=== PATIENT | female | born 1985 | race Caucasian/White ===

== ENCOUNTER → 2017-12-04 18:38 | Outpatient (CLI) | payer BC, SELFPAY ==
[2017-12-04 21:18] LABS: Chlamydia Trachomatis by PCR Negative (Negative); Neisserai gonorrhoeae by PCR Negative (Negative); Probe Check PASS; Sample Adequacy Control PASS; Specimen Processing Control PASS
[2017-12-10 08:29] LABS: HPV Reflexed? NOT INDICATED
== END ==
PROVIDERS: Visit Provider Obstetrics & Gynecology
DX: Z12.4 Encounter for screening for malignant neoplasm of cervix (principal); Z11.3 Encounter for screening for infections with a predominantly sexual mode of transmission
CPT/HCPCS: 87491; 87591; 88175; G0145

== ENCOUNTER → 2017-12-25 14:33 | Outpatient (CLI) | payer BC, SELFPAY ==
[2017-12-25 15:59] LABS: Absolute Lymphocyte Count 1.48 X10^3/ul (0.83-4.51); Absolute Neutrophil Count 4.7 X10^3/uL (2.0-7.7); Basophil# 0.01 X10^3/uL; Basophil% 0.1 % (0-1); Eosinophils% 1.5 % (0-5); Hematocrit 39.1 % (37-47); Hemoglobin 13.3 g/dl (12.0-15.0); Lymphocyte # 1.48 X10^3/ul (4.0); Lymphocyte % 21.8 % (19-41); Mean Corpuscular Volume 94.2 fL (81-99); Mean Platelet Vol. 11.7 fl (6.2-12.0); Monocyte# 0.46 X10^3/uL; Monocyte% 6.8 % (0-10); Neutrophil # 4.73 X10^3/uL (2.7-7.7); Neutrophil % 69.5 % (47-70); Platelet Count 242 K/mm3 (150-450); RBC Distribution Width CV 12.6 % (11.6-14.6); RBC Distribution Width SD 42.1 fl (35.1-43.9); Red Blood Count 4.15 M/mm3 (4.2-5.4); White Blood Count 6.8 K/mm3 (4.4-11.0)
[2017-12-25 16:00] LABS: POSITIVE COUNT NO; POSITIVE DIFFERENTIAL NO; POSITIVE MORPHOLOGY NO
[2017-12-25 16:56] LABS: HIV - WCH Non-Reactive (Nonreactive); Rubella IgG 221.3 IU/mL
[2017-12-25 17:39] LABS: Color, Urine Yellow (Yellow); Glucose, Dipstick Normal (Normal); Ketone-Dipstick Negative (Negative); Leukocyte Esterase-Dipstick 25 /ul (Negative); Nitrite-Dipstick Negative (Negative); Occult Blood-Urine Negative /ul (Negative); Protein-Dipstick Negative (Negative); Specific Gravity, Urine 1.015 (1.002-1.030); Urine Bilirubin Dipstick Negative (Negative); Urine Clarity Clear (Clear); Urine Urobilinogen Normal (Normal)
[2017-12-25 17:47] LABS: COTININE Drug Screen Negative (<200 ng/mL)
[2017-12-25 17:54] LABS: Amphetamine Urine VISTA NEGATIVE (<1000 ng/mL); Barbiturate Urine VISTA NEGATIVE (< 200 ng/mL); Benzodiazepine Urine VISTA NEGATIVE (< 200 ng/mL); Cocaine Urine VISTA NEGATIVE (< 300 ng/mL); Ecstacy Urine VISTA NEGATIVE (< 500 ng/mL); Methadone Urine VISTA NEGATIVE (< 300 ng/mL); PCP Urine VISTA NEGATIVE (< 25 ng/mL); THC Urine VISTA NEGATIVE (< 50 ng/mL); Vista UDS pH Range 5
[2017-12-28 11:36] LABS: HEPATITIS B SURFACE AG Negative (Negative); Hep C Antibodies <0.1 s/co ratio (0.0-0.9)
[2018-01-01 02:59] LABS: Prenatal RPR NONREACTIVE (NONREACTIVE)
== END ==
PROVIDERS: Visit Provider Obstetrics & Gynecology
DX: Z34.81 Encounter for supervision of other normal pregnancy, first trimester (principal)
CPT/HCPCS: 36415; 80307; 81002; 84443; 85025; 86703; 86762; 86803; 87340

== ENCOUNTER → 2018-04-09 15:25 | Outpatient (CLI) | payer BC, SELFPAY ==
[2016-12-18 13:33] VITALS: BMI 25.9
[2018-04-09 16:26] LABS: Hematocrit 39.3 % (37-47); Hemoglobin 12.9 g/dl (12.0-15.0); Mean Corp Hgb Conc 32.8 g/gl (32-36); Mean Corpuscular Hgb 31.9 pg (27.0-32.0); Mean Corpuscular Volume 97.3 fL (81-99); Platelet Count 208 K/mm3 (150-450); RBC Distribution Width SD 45.6 fl (35.1-43.9); Red Blood Count 4.04 M/mm3 (4.2-5.4)
[2018-04-09 16:33] LABS: Scan Indicated on CBC? Y/N NO
[2018-04-09 16:42] LABS: Glucose Challenge Gest 1H 50g 160 mg/dL (70-140)
== END ==
PROVIDERS: Visit Provider Obstetrics & Gynecology
DX: Z34.83 Encounter for supervision of other normal pregnancy, third trimester (principal)
CPT/HCPCS: 36415; 82950; 85027

== ENCOUNTER → 2018-04-14 06:44 | Outpatient (CLI) | payer BC, SELFPAY ==
[2018-04-14 07:41] LABS: Glucose GTT-Gestation. Fasting 74 mg/dL (<105)
[2018-04-14 08:43] LABS: Glucose GTT-Gestational 1 Hr 122 mg/dL (<190)
[2018-04-14 10:06] LABS: Glucose GTT-Gestational 2 Hr 88 mg/dL (<165)
[2018-04-14 10:23] LABS: Glucose GTT-Gestational 3 Hr 50 L (<145)
--- OUTSIDE RECORDS SUMMARY | 2018-06-18 22:15 | XMS RPT_ITS ---
:1985 Author Organization OHIP Care Team Providers Name Role Phone Torito Atwood Attending Unavailable Seals, Torito Attending Unavailable SealsTorito Referring Unavailable Primay Care Physicia, No Primary Care Unavailable SealsTorito Attending Unavailable Seals, Torito Attending Unavailable PROBLEMS PROBLEMS DATE TYPE CONDITION / CODE ATTENDING STATUS SOURCE 04/13/2018 Unknown Z34.83 - Torito Atwood Active [place] Encounter for Community supervision of Hospital other normal Repository , third trimester / Z34.83(ICD-10) PROCEDURES PROCEDURES No Procedure Records FoundRESULTS RESULTS GESTATIONAL GTT 3HR Collected: 04/14/2018 Status: F Source: [place] 100G 7:00 AM [facility] REPOSITORY Order Comment: Is Patient Fasting? Y TYPE CODE TESTS RESULT OUT OF RANGE REFERENCE UNITS LAB L501.0650 <105 mg/dL Normal GLU 74 GTT-FASTING Result Comment: GLUCOSE TOLERANCE TEST FOR Reference Interval GESTATIONAL DIABETES Fasting <105 mg/dL 1 hour <190 mg/dl 2 hour <165 mg/dl 3 hour <145 mg/dl LAB L501.0660 <190 mg/dL Normal GLU GTT- 1HR 122 LAB L501.0670 <165 mg/dL Normal GLU GTT- 2HR 88 LAB L501.0680 <145 L Normal GLU GTT- 3HR 50 Performed By: #### L500.4710 #### [facility] [address] [place], [address] CBC-COMPLETE BLOOD CNT Collected: 04/09/2018 Status: F Source: [place] NO DIFF 3:34 PM [facility] REPOSITORY TYPE CODE TESTS RESULT OUT OF RANGE REFERENCE UNITS LAB L100.1000 4.4-11.0 K/mm3 Normal WBC 7.0 LAB L100.1200 4.2-5.4 M/mm3 Low RBC 4.04 LAB L100.1300 12.0-15.0 g/dl Normal HGB 12.9 LAB L100.1400 37-47 % Normal HCT 39.3 LAB L100.1500 81-99 fL Normal MCV 97.3 LAB L100.1600 27.0-32.0 pg Normal MCH 31.9 LAB L100.1700 32-36 g/gl Normal MCHC 32.8 LAB L100.1810 11.6-14.6 % Normal RDW CV 13.0 LAB L100.1820 35.1-43.9 fl High RDW SD 45.6 LAB L100.1900 150-450 K/mm3 Normal PLT 208 LAB L100.2000 6.2-12.0 fl Normal MPV 12.0 Performed By: #### L100.0500 #### [facility] [address] [place], [address] GLUCOSE CHALLENGE GEST Collected: 04/09/2018 Status: F Source: [place] 1H 50G 3:34 PM [facility] REPOSITORY TYPE CODE TESTS RESULT OUT OF RANGE REFERENCE UNITS LAB L501.0250 70-140 mg/dL High GLU GEST 160 50g 1H Performed By: #### L501.0250 #### [facility] [address] [place], [place], [address] URINE DRUG SCREEN Collected: 12/25/2017 Status: F Source: [place] (ABRAMTA) 2:37 PM [facility] REPOSITORY Order Comment: List of Drugs Taken or Suspected? UNK TYPE CODE TESTS RESULT OUT OF RANGE REFERENCE UNITS LAB L505.0075 TO BE Normal CONFIRMED Result Comment: CONFIRMATORY TESTING FOR ALL POSITIVE URINE DRUG SCREEN RESULTS WILL ONLY BE SENT OUT UPON PHYSICIAN ORDER. VISTA Urine Drug Screen methods provide only preliminary analytical test results. A more specific alternate chemical method must be used in order to obtain a confirmed analytical result. Gas chromatography/mass spectrometery (GC/MS) is the preferred confirmatory method. Clinical consideration and professional judgement should be applied to any drug of abuse test result, particularly when preliminary positive results are used. URINE TCA TESTING MUST BE ORDERED SEPARATELY. USE TEST MNEMONIC: [facility] LAB L505.5005 VISTA UDS PH 5 Normal LAB L505.5015 <1000 ng/mL AMPHETAMINES Normal NEGATIVE LAB L505.5025 < 200 ng/mL BARBITIURATES Normal NEGATIVE LAB L505.5035 < 200 ng/mL BENZODIAZIPINE Normal NEGATIVE LAB L505.5045 < 300 ng/mL COCAINE Normal NEGATIVE LAB L505.5055 < 500 ng/mL ECSTACY Normal NEGATIVE LAB L505.5065 < 300 ng/mL METHADONE Normal NEGATIVE LAB L505.5075 < 300 ng/mL OPIATES Normal NEGATIVE LAB L505.5085 < 25 ng/mL PCP Normal NEGATIVE LAB L505.5095 < 50 ng/mL THC Normal NEGATIVE Performed By: #### L505.5000, L505.6240 #### [facility] [address] [place], [place], [address] NICOTINE URINE DRUG Collected: 12/25/2017 Status: F Source: [place] SCREEN 2:37 PM [facility] REPOSITORY Order Comment: List of Drugs Taken or Suspected? UNK TYPE CODE TESTS RESULT OUT OF RANGE REFERENCE UNITS LAB L505.6250 TO BE Normal CONFIRMED Result Comment: CONFIRMATORY TESTING FOR ALL POSITIVE URINE DRUG SCREEN RESULTS WILL ONLY BE SENT OUT UPON PHYSICIAN ORDER. The results of Urine Drug Screen methods provide only preliminary analytical test results. A more specific alternate chemical method must be used in order to obtain a confirmed analytical result. Gas chromatography/mass spectrometery (GC/MS) is the preferred confirmatory method. Clinical consideration and professional judgement should be applied to any drug of abuse test result, particularly when preliminary positive results are used. LAB L505.6270 <200 ng/mL Normal COT DRG Negative SCREEN Result Comment: Cotinine is the first-stage metabolite of Nicotine. Performed By: #### L505.5000, L505.6240 #### [facility] [place], [address] CBC W/DIFF, AUTOMATED Collected: 12/25/2017 Status: F Source: [place] 2:37 PM [facility] REPOSITORY TYPE CODE TESTS RESULT OUT OF RANGE REFERENCE UNITS LAB L100.1000 4.4-11.0 K/mm3 Normal WBC 6.8 LAB L100.1200 4.2-5.4 M/mm3 Low RBC 4.15 LAB L100.1300 12.0-15.0 g/dl Normal HGB 13.3 LAB L100.1400 37-47 % Normal HCT 39.1 LAB L100.1500 81-99 fL Normal MCV 94.2 LAB L100.1600 27.0-32.0 pg Normal MCH 32.0 LAB L100.1700 32-36 g/gl Normal MCHC 34.0 LAB L100.1810 11.6-14.6 % Normal RDW CV 12.6 LAB L100.1820 35.1-43.9 fl Normal RDW SD 42.1 LAB L100.1900 150-450 K/mm3 Normal PLT 242 LAB L100.2000 6.2-12.0 fl Normal MPV 11.7 LAB L100.2100 47-70 % Normal NEUT% 69.5 LAB L100.2200 19-41 % Normal LY% 21.8 LAB L100.2300 0-10 % Normal MONO% 6.8 LAB L100.2400 0-5 % Normal EO% 1.5 LAB L100.2500 0-1 % Normal BASO% 0.1 LAB L100.2550 0.0-0.9 % Normal IM GRAN % 0.300 Result Comment: IG% - Immature Granulocytes (promyelocytes, myelocytes and metamyelocytes) > 1% indicates that a LEFT SHIFT is Present. LAB L100.2620 2.0-7.7 X10 3/uL Normal Absolute Neut 4.7 LAB L100.2720 0.83-4.51 X10 3/ul Normal Absolute Lymph 1.48 Performed By: #### L100.0100 #### [facility] [address] [place], [place], [id number] THYROID STIM HORMONE Collected: 12/25/2017 Status: F Source: [place] (TSH) 2:37 PM [facility] REPOSITORY TYPE CODE TESTS RESULT OUT OF RANGE REFERENCE UNITS LAB L501.9520 0.358-3.74 uIU/mL Normal TSH 0.90 Performed By: #### L501.9520 #### [facility] [address] [place], [address] T AND S-NO Collected: 12/25/2017 Status: F Source: [place] CHARGE W/PNP 2:37 PM [facility] REPOSITORY Order Comment: Reason for Type AND Screen/Red Cells: Surgery? N TYPE CODE TESTS RESULT OUT OF RANGE REFERENCE UNITS LAB B10.0800 A Normal BLOOD POSITIVE TYPE GEL LAB B100.4050 Normal Ab SCREEN NEGATIVE GEL Performed By: #### B100.7550 #### [facility] [address] [place], [place], [address] RUBELLA IGG Collected: 12/25/2017 Status: F Source: [place] 2:37 PM [facility] REPOSITORY TYPE CODE TESTS RESULT OUT OF RANGE REFERENCE UNITS LAB L509.4000 IU/mL Normal Rubella IgG 221.3 Result Comment: Antibody results Interpretation of Immune Status < 5 IU/ml Presumed Non-immune 5 - < 10 IU/ml Equivocal > or = 10 IU/ml Presumed Immune Performed By: #### L509.4000, L3890.6005 #### [facility] [address] [place], [address] HIV - WCH Collected: 12/25/2017 Status: F Source: [place] 2:37 PM [facility] REPOSITORY TYPE CODE TESTS RESULT OUT OF RANGE REFERENCE UNITS LAB L3890.6005 Nonreactive Normal HIV - WCH Non-Reactive Performed By: #### L509.4000, L3890.6005 #### [facility] [address] [place], [place], [address] URINALYSIS, ROUTINE Collected: 12/25/2017 Status: F Source: [place] (DIPSTICK) 2:37 PM [facility] REPOSITORY Order Comment: How was Urine Obtained? Urine, Random TYPE CODE TESTS RESULT OUT OF RANGE REFERENCE UNITS LAB L400.3000 Yellow COLOR Normal Yellow LAB L400.3050 Clear Normal CLARITY Clear LAB L400.3200 Normal mg/dl Normal GLUCOSE, UR Normal LAB L400.3300 Negative mg/dL Normal BILIRUBIN URINE Negative LAB L400.3400 Negative mg/dl Normal KETONE UR Negative LAB L400.3465 1.002-1.030 Normal SP.GR. DIPSTX 1.015 LAB L400.3550 5.0 - 8.0 pH UR Normal 6.0 LAB L400.3600 Negative mg/dl PROT Normal DIPSTX Negative LAB L400.3700 Normal mg/dl Normal UROBILI Normal LAB L400.3750 Negative Normal NITRITE UR Negative LAB L400.3780 Negative /ul Normal OCCULT BLOOD-UR Negative LAB L400.3800 Negative /ul High LEUK 25 ESTERASE Performed By: #### L400.2010 #### [facility] [address] [place], [place], [address] HEPATITIS B SURFACE Collected: 12/25/2017 Status: F Source: [place] AG 2:37 PM [facility] REPOSITORY TYPE CODE TESTS RESULT OUT OF RANGE REFERENCE UNITS LAB L3100.0400 Negative Normal HB Negative SURF AG Result Comment: Performed at: [facility] [id number] Clinical Nursing Professor: Hakeem Richard PhD, Phone: [phone] Performed By: #### L3100.0390, L3100.0625 #### [facility] (refer to report for specific site) refer to report for address and phone number HEPATITIS C ANTIBODIES Collected: 12/25/2017 Status: F Source: [place] 2:37 PM [facility] REPOSITORY TYPE CODE TESTS RESULT OUT OF RANGE REFERENCE UNITS LAB L3100.0650 0.0-0.9 s/co ratio Normal HEP C AB <0.1 Result Comment: Negative: < 0.8 Indeterminate: 0.8 - 0.9 Positive: > 0.9 The CDC recommends that a positive HCV antibody result be followed up with a HCV Nucleic Acid Amplification test (755813). Performed By: #### L3100.0390, L3100.0625 #### [facility] (refer to report for specific site) refer to report for address and phone number RPR Collected: 12/25/2017 Status: F Source: [place] 2:37 PM [facility] REPOSITORY TYPE CODE TESTS RESULT OUT OF REFERENCE UNITS RANGE LAB L700.5100 NONREACTIVE Normal RPR NONREACTIVE Performed By: #### L700.5100 #### [facility] [address] [place], [address] CT/NG WCH BY PCR Collected: 12/04/2017 Status: F Source: [place] 6:39 PM [facility] REPOSITORY TYPE CODE TESTS RESULT OUT OF RANGE REFERENCE UNITS LAB L8200.2100 Negative Normal Chlam Negative Trac PCR LAB L8200.2200 Negative Normal NG by Negative PCR Performed By: #### L8200.2000 #### [facility] [address] [place], [address] PAP I-G W/RFX HRHPV Collected: 12/04/2017 Status: F Source: [place] 6:39 PM [facility] REPOSITORY Order Comment: CYTOLOGY INFORMATION: - CLINICAL INFORMATION: HYSTERECTOMY - DATE LMP/MENOPAUSE: LMP - COLLECTION VIAL: Thin Prep Vial - TEACHER PRIVATE SOURCE: CERVICAL/ENDOCERVICAL - COLLECTION TECHNIQUE: BRUSH/SPATULA Specimen Comment: [id number] Specimen Comment: Source.............Cervix;Endocervix Specimen Comment: LMP / Prev Treat...Hyst Specimen Comment: No. of containers..01 ThinPrep Vial TYPE CODE TESTS RESULT OUT OF RANGE REFERENCE UNITS LAB L7400.0800 . Normal DIAGN Comment Result Comment: NEGATIVE FOR INTRAEPITHELIAL LESION AND MALIGNANCY. LAB L7400.0900 . Normal ADEQ Comment Result Comment: Satisfactory for evaluation. No endocervical cells are present. This is consistent with a history of hysterectomy. LAB L7400.1400 . Normal PERFORM Comment Result Comment: Karri Rivas Embalmer Apprentice (ASCP) LAB L7400.2575 . Normal TEST METHOD Comment Result Comment: This liquid based ThinPrep(R) pap test was screened with the use of an image guided system. LAB L7400.2600 . Normal . COMM LAB L7400.2700 . Normal PAPSMR Comment Result Comment: The Pap smear is a screening test designed to aid in the detection of premalignant and malignant conditions of the uterine cervix. It is not a diagnostic procedure and should not be used as the sole means of detecting cervical cancer. Both false-positive and false-negative reports do occur. LAB L7400.2800 . Normal HPV RFLX Comment Result Comment: The HPV DNA reflex criteria were not met with this specimen result therefore, no HPV testing was performed. Performed at: [facility] [id number] Clinical Nursing Professor: Jud Sanchez MD, Phone: [phone] Performed By: #### L7400.0350 #### [facility] (refer to report for specific site) refer to report for address and phone number ALLERGIES ALLERGIES DATE TYPE / CODE NAME / CODE REACTION SEVERITY SOURCE 08/30/2014 Drug No Known Unknown [facility] Allergy/4160 Allergies/F00 Hospital [address]154(SNOMED [id number](RXNOR Repository CT) M) ENCOUNTERS ENCOUNTERS ADMIT/DISCHARGE ACCOUNT ADMITTING ENCOUNTER LOCATION SOURCE NUMBER CLASS 04/14/[id number] ing:LAB Repository 04/09/[id number] ing:WOBLAB Repository 12/25/[id number] ing:WOBLAB Repository 12/04/[id number] ing:LABSPEC Repository PAYERS PAYERS ENCOUNTER GUARANTOR PAYER SUBSCRIBER SOURCE 04/14/2018 REYNALDO Mcneal Primary REYNALDO [id number] [facility] y Number: [id number], [place] [id number] Repository [address]Moh: ([phone]) Date:2517-05-26PD [phone] () [place] CLEMENTS [id number]: 04/14/2018 Secondary NOT GIVENUNK [place] Insurance:SELF PAY [facility] Number: Effective Repository Date:2018-04-12 04/09/2018 REYNALDO Primary SUKH [place] [id number] Insurance:ANTHE[employer]olic HARTZLERDOB: Community [place] y Number: [id number], [place] [id number] Repository [address]Qik: [phone]) Date:5824-87-37LS [phone] () [id number] AVILA [address]DH: 04/09/2018 Secondary NOT GIVENUNK [place] Insurance:SELF PAY [facility] Number: Effective Repository Date:2018-04-09 12/25/2017 REYNALDO Primary REYNALDO [place] [id number] Insurance:ANTHEMPolic HARTZLERDOB: Community [place] y Number: [id number], [place] [id number] Repository [address]Qwa: [phone]) Date:1095-11-05IP [phone] () [id number] AVILA [address]HR: 12/25/2017 Secondary NOT GIVENUNK [place] Insurance:SELF PAY [facility] Number: Effective Repository Date:2017-12-25 12/04/2017 Sukh Primary SUKH [place] [id number] Insurance:ANTHEMPolic HARTZLERDOB: Community [place] y Number: [id number], [place] [id number] Repository [address]Xok: [phone]) Date:2630-99-52PU [phone] () 191274VSUYJHYARCHANA AVILA [address]QD: 12/04/2017 Secondary NOT GIVENUNK [place] Insurance:SELF PAY [facility] Number: Effective Repository Date:2017-12-04
== END ==
PROVIDERS: Referring Provider Obstetrics & Gynecology; Visit Provider Obstetrics & Gynecology
DX: O24.912 Unspecified diabetes mellitus in pregnancy, second trimester (principal); Z3A.00 Weeks of gestation of pregnancy not specified
CPT/HCPCS: 36415; 82951; 82952

== ENCOUNTER → 2018-06-04 14:49 | Outpatient (CLI) | payer BC, SELFPAY ==
[2016-12-18 13:33] VITALS: BMI 25.9
== END ==
PROVIDERS: Visit Provider Obstetrics & Gynecology
DX: Z36.85 Encounter for antenatal screening for Streptococcus B (principal)
CPT/HCPCS: 87081

== ENCOUNTER 2018-07-02 02:00 | Inpatient (IN) | payer BC, SELFPAY ==
[2016-12-18 13:33] VITALS: BMI 25.9
[2018-07-01 21:49] VITALS: BMI 26.4
[2018-07-02] MEDS: Lactated Ringers 1,000 ML 50 ML IV ×2 (02:20→03:27)
[2018-07-02 02:45] LABS: Absolute Lymphocyte Count 1.91 X10^3/ul (0.83-4.51); Absolute Neutrophil Count 5.7 X10^3/uL (2.0-7.7); Basophil# 0.02 X10^3/uL; Basophil% 0.2 % (0-1); Eosinophil# 0.13 X10^3/uL; Eosinophils% 1.5 % (0-5); Hematocrit 39.3 % (37-47); Hemoglobin 13.3 g/dl (12.0-15.0); Lymphocyte # 1.91 X10^3/ul (4.0); Lymphocyte % 22.6 % (19-41); Mean Corp Hgb Conc 33.8 g/gl (32-36); Mean Corpuscular Hgb 32.7 pg (27.0-32.0); Mean Corpuscular Volume 96.6 fL (81-99); Mean Platelet Vol. 11.6 fl (6.2-12.0); Monocyte# 0.62 X10^3/uL; Monocyte% 7.3 % (0-10); Neutrophil % 67.6 % (47-70); Platelet Count 185 K/mm3 (150-450); RBC Distribution Width CV 13.3 % (11.6-14.6); RBC Distribution Width SD 46.5 fl (35.1-43.9); Red Blood Count 4.07 M/mm3 (4.2-5.4); White Blood Count 8.5 K/mm3 (4.4-11.0)
[2018-07-02 02:47] LABS: POSITIVE COUNT NO; POSITIVE DIFFERENTIAL NO; POSITIVE MORPHOLOGY NO
[2018-07-02] MEDS: fentaNYL-bupivacaine (epidural) 100 ML BAG EPIDURAL (03:52)
[2018-07-02] MEDS: Oxytocin 30 units/NS 500 ml 30 UNITS/500 ML IV.SOLN 334 UNITS IV (04:14)
--- NOTE | 2018-07-02 04:25 | PCM.OB.VAG ---
Vaginal Delivery Maternal Presentation: Active Labor 439w6d ega admitted in early active labor Amniotic Membrane Rupture Type: Spontaneous Rupture of Membrane time: 254 Amniotic Fluid Description: Clear Final VIJAY: 07/02/18 Final VIJAY Source: US <20 weeks Gestational age: 40 Weeks and 0 Days Date of Procedure: 07/02/18 Pre-Operative Diagnosis: Labor Post-Operative Diagnosis: saME Surgery/ Procedure Performed: Spontaneous Vaginal Delivery Anesthesiologist: Te Potter Type of Anesthesia: Epidural Description of Procedure: Admitted at 5 cm dilated. Progressed over 2 hours to fully dilated then pushed for a short time to deliver a live female . The placenta delivered spontaneously intact with a centrally located 3VC. The uterus contracted well. Inspection revealed an intact cervix, vagina, and perineum. Presentation: Vertex Placental Delivery Description: Spontaneous Placenta Disposition: [facility] Percentage of Placenta Abruption: 0 Cord Vessel Description: 3 Vessels Nuchal Cord Compression: Without compression Cord Entanglement: None Estimated Blood Loss: 200cc A gender: Female (1 minute): 8 (5 minute): 9 Episiotomy Description: None Laceration: None Medications given after delivery: IV Pitocin Complications: None
--- NOTE | 2018-07-02 04:30 | DCINST_ITS ---
Discharge Diet: No Restrictions Call your doctor if your incision/area has: Sudden Increased Bleeding, Foul Smelling Discharge Call your doctor if you observe: Fever of 101 or Higher, Inability to urinate, Inability to have a bowel movement, Using more than one pad per hour, Shortness of breath, Chest pain, Calf discomfort, Uncontrolled pain Cleanse incision/area with: Soap & Water Additional Instructions: If you experience any of the following, contact your healthcare provider. * Bleeding that soaks a pad every hour for 2 hours * Fever 100.4 or higher * Unrelieved incision or abdominal pain * Swelling, redness, discharge or bleeding from your incision or episiotomy site * Your incision begins to separate * Problems urinating (including inability to urinate or burning while urinating). * Visual changes * Severe headache * Flu-like symptoms * Pain or redness in one of both of your breasts * Pain, warmth, tenderness or swelling in your legs, especially the calf area * Frequent nausea and vomiting * Symptoms of depression or anxiety If you experience any of the following, call 911 or go to the nearest Emergency Room. * Chest pain * Problems breathing * Seizure activity * Partial or complete paralysis of a body part, slurred speech, weakness or drooping of the face, or a sudden inability to walk or hold your balance Allergies/Adverse Reactions: Allergies No Known Allergies Allergy (Verified 07/01/18 21:51) Medications to take at Discharge Vits [Prenatabs FA ] 1 tablet PO DAILY 08/30/14 Ibuprofen [Motrin] 600 mg PO Q6H PRN PRN #30 tab 07/02/18 The following prescriptions were given: Ibuprofen [Motrin] 600 mg PO Q6H PRN PRN #30 tab PRN Reason: pain or cramping Please Follow Up With: Torito Atwood MD When: 6 weeks Primary Care Physician: Care Physician,No Primary [Primary Care Provider] - Test Results: Test results from this visit will be discussed in further detail at your follow- up appointment, if applicable. Proposed Discharge Date: 07/03/18
[2018-07-02] MEDS: Oxytocin 30 units/NS 500 ml 30 UNITS/500 ML IV.SOLN 167 UNITS IV (04:45)
[2018-07-02] MEDS: 0.9% Saline Lock 10 ML Syringe IV (05:55)
[2018-07-02 06:25] VITALS: BP 102/67; PULSE 76; RESP 18; TEMP 36.1
[2018-07-02] MEDS: Ibuprofen 600 MG Tablet PO ×3 (07:00→21:36)
[2018-07-02 09:10] VITALS: BP 111/62; PULSE 76; RESP 12; TEMP 36.6
[2018-07-02] MEDS: Acetaminophen 500 MG Tablet 1000 MG PO ×2 (10:40→18:58)
[2018-07-02] MEDS: Prenatal Vits Tablet 1 TABLET PO (11:01)
[2018-07-02 12:00] VITALS: BP 116/76; PULSE 73; RESP 16; TEMP 36.6
[2018-07-02 17:00] VITALS: BP 116/62; PULSE 70; TEMP 36.6
[2018-07-02 19:51] VITALS: BP 116/64; PULSE 69; RESP 16; TEMP 36.9
[2018-07-02 23:59] VITALS: BP 117/78; PULSE 69; RESP 16; TEMP 36.5
[2018-07-03] MEDS: Acetaminophen 500 MG Tablet 1000 MG PO ×2 (03:01→14:32)
[2018-07-03 03:02] VITALS: PULSE 72; RESP 16; TEMP 37.1
[2018-07-03] MEDS: Ibuprofen 600 MG Tablet PO (06:49)
[2018-07-03] MEDS: Senna/Docusate Sodium 1 Tablet PO (06:50)
[2018-07-03 06:51] VITALS: BP 113/66; PULSE 72; RESP 15
[2018-07-03 07:09] LABS: Hematocrit 33.8 % (37-47); Hemoglobin 11.2 g/dl (12.0-15.0); Mean Corp Hgb Conc 33.1 g/gl (32-36); Mean Corpuscular Hgb 32.3 pg (27.0-32.0); Mean Corpuscular Volume 97.4 fL (81-99); Mean Platelet Vol. 11.4 fl (6.2-12.0); Platelet Count 157 K/mm3 (150-450); RBC Distribution Width CV 13.6 % (11.6-14.6); RBC Distribution Width SD 47.5 fl (35.1-43.9); Red Blood Count 3.47 M/mm3 (4.2-5.4); White Blood Count 7.8 K/mm3 (4.4-11.0)
[2018-07-03 07:21] LABS: Scan Indicated on CBC? Y/N NO
[2018-07-03 07:50] VITALS: BP 101/69; PULSE 72; RESP 14; TEMP 36.7
--- NOTE | 2018-07-03 10:46 | PCM.PN.OB ---
Subjective: Patient without complaints. Minimal vaginal bleeding. Breast-feeding going well. Wants to go home today. - Physical Exam Vital Signs Temp Pulse Resp BP 98.1 F 72 14 101/69 07/03/18 07:50 07/03/18 07:50 07/03/18 07:50 07/03/18 07:50 Oxygen Delivery Method Room Air Weight: 159 lb 2.78 oz Body Mass Index (BMI) 26.4 Intake and Output for Last 24 Hours 07/01/18 07/02/18 07/03/18 23:59 23:59 23:59 Intake Total 1459 / 1459 Output Total 600 / 600 Balance 859 / 859 Laboratory Tests Past 24 Hrs 07/03/18 06:50 WBC 7.8 RBC 3.47 L Hgb 11.2 L Hct 33.8 L MCV 97.4 MCH 32.3 H MCHC 33.1 RDW 13.6 RDW Differential 47.5 H Plt Count 157 MPV 11.4 Medical Necessity - Tobacco Use Smoking Status: Never smoker Assessment/Plan Doing well day #1 status post spontaneous vaginal delivery. Will release to home with routine instructions.
[2018-07-03 14:25] VITALS: BP 111/68; PULSE 70; RESP 16; TEMP 36.8; O2SAT 98
[2018-07-03] MEDS: Prenatal Vits Tablet 1 TABLET PO (14:33)
--- NOTE | 2018-07-07 16:15 | NURSING ---
follow up phone call no answer , left voicemail
--- NOTE | 2018-07-08 07:47 | HP.PCM_ITS ---
Problem List (1) Active labor at term Status: Acute History of Present Illness Date of Admission: 07/02/18 Chief Complaint: Labor The patient is a 32 year old F [admitted at 39w6d ega in early active labor. No signs of SROM. 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 Objective: Afeb VSS. FHR tracing Cat 1 - Physical Exam General: Alert, Oriented x3, Cooperative, No apparent distress Lungs: Clear to auscultation, Normal air movement Cardiovascular: Regular rate, Regular Rhythm Abdomen: Soft, Non Tender, Non-Distended, Gravid, Appropriate for Gestational Age Extremities: No edema Skin: No rashes Neurological: Neuro grossly intact Psych/Mental Status: Normal Affect Comment: CE 4cm membranes intact Vital Signs Temp Pulse Resp BP Pulse Ox 98.2 F 70 16 111/68 98 07/03/18 14:25 07/03/18 14:25 07/03/18 14:25 07/03/18 14:25 07/03/18 14:25 Oxygen Delivery Method Room Air Weight: 159 lb 2.78 oz Body Mass Index (BMI) 26.4 Assessment/Plan All Active Problems Active labor at term (Acute) Admitted in active labor. AROM when appropriate. Expect .
--- NOTE | 2018-07-10 01:49 | PCM.HP.STD ---
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 Good movement. Objective: Afeb VSS FHR tracing CAT 1 - Physical Exam General: Alert, Oriented x3, Cooperative, No apparent distress Lungs: Clear to auscultation, Normal air movement Cardiovascular: Regular rate, Regular Rhythm Abdomen: Soft, Non Tender, Non-Distended, Gravid, Appropriate for Gestational Age Extremities: No edema Skin: No rashes Neurological: Neuro grossly intact Psych/Mental Status: Normal Affect Comment: CE 4cm Vital Signs Temp Pulse Resp BP Pulse Ox 98.2 F 70 16 111/68 98 07/03/18 14:25 07/03/18 14:25 07/03/18 14:25 07/03/18 14:25 07/03/18 14:25 Oxygen Delivery Method Room Air Weight: 159 lb 2.78 oz Body Mass Index (BMI) 26.4 Assessment/Plan All Active Problems Active labor at term (Acute) In early active labor. Will observe and if makes progress will consider AROM. Epidural when desired.
--- NOTE | 2018-07-10 01:53 | HP.PCM_ITS ---
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 Good movement. Objective: Afeb VSS FHR tracing CAT 1 - Physical Exam General: Alert, Oriented x3, Cooperative, No apparent distress Lungs: Clear to auscultation, Normal air movement Cardiovascular: Regular rate, Regular Rhythm Abdomen: Soft, Non Tender, Non-Distended, Gravid, Appropriate for Gestational Age Extremities: No edema Skin: No rashes Neurological: Neuro grossly intact Psych/Mental Status: Normal Affect Comment: CE 4cm Vital Signs Temp Pulse Resp BP Pulse Ox 98.2 F 70 16 111/68 98 07/03/18 14:25 07/03/18 14:25 07/03/18 14:25 07/03/18 14:25 07/03/18 14:25 Oxygen Delivery Method Room Air Weight: 159 lb 2.78 oz Body Mass Index (BMI) 26.4 Assessment/Plan All Active Problems Active labor at term (Acute) In early active labor. Will observe and if makes progress will consider AROM. Epidural when desired.
== END 2018-07-03 15:55 | disposition home or self-care (01) | DRG 807 ==
LOC: WPOUT 02:01
PROVIDERS: Admitting Provider Obstetrics & Gynecology; Visit Provider Obstetrics & Gynecology
DX: O69.81X0 Labor and delivery complicated by cord around neck, without compression, not applicable or unspecified (principal); Z37.0 Single live birth; Z3A.39 39 weeks gestation of pregnancy
CPT/HCPCS: 59025; 59050; 85025; 85027; 86850; 86900; 99218; J7120; A4216; G0378

== ENCOUNTER → 2019-09-26 17:41 | Outpatient (CLI) | payer BC, SELFPAY ==
[2019-09-26 09:40] VITALS: BMI 21.6
[2019-09-26 18:51] LABS: Amphetamine Urine VISTA NEGATIVE (<1000 ng/mL); Barbiturate Urine VISTA NEGATIVE (< 200 ng/mL); Benzodiazepine Urine VISTA NEGATIVE (< 200 ng/mL); Cocaine Urine VISTA NEGATIVE (< 300 ng/mL); Ecstacy Urine VISTA NEGATIVE (< 500 ng/mL); Methadone Urine VISTA NEGATIVE (< 300 ng/mL); PCP Urine VISTA NEGATIVE (< 25 ng/mL); THC Urine VISTA NEGATIVE (< 50 ng/mL); Vista UDS pH Range 6
[2019-09-26 20:47] LABS: Chlamydia Trachomatis by PCR Negative (Negative); Neisserai gonorrhoeae by PCR Negative (Negative); Probe Check PASS; Sample Adequacy Control PASS; Specimen Processing Control PASS
[2019-10-03 10:52] LABS: Absolute Lymphocyte Count 1.14 X10^3/uL (0.83-4.51); Absolute Neutrophil Count 5.2 X10^3/uL (2.0-7.7); Basophil# 0.01 X10^3/uL; Basophil% 0.1 % (0-1); Eosinophil# 0.06 X10^3/uL; Eosinophils% 0.9 % (0-5); Hematocrit 41.8 % (37-47); Hemoglobin 13.5 g/dL (12.0-15.0); Lymphocyte # 1.14 X10^3/ul (4.0); Lymphocyte % 16.8 % (19-41); Mean Corp Hgb Conc 32.3 g/dL (32-36); Mean Corpuscular Hgb 31.8 pg (27.0-32.0); Mean Corpuscular Volume 98.4 fL (81-99); Mean Platelet Vol. 10.9 fl (6.2-12.0); Monocyte# 0.37 X10^3/uL; Monocyte% 5.4 % (0-10); NRBC Flagged by Analyzer 0 % (0-5); Neutrophil # 5.18 X10^3/uL (2.7-7.7); Neutrophil % 76.2 % (47-70); Platelet Count 214 K/mm3 (150-450); RBC Distribution Width CV 12.9 % (11.6-14.6); RBC Distribution Width SD 46.5 fl (35.1-43.9); Red Blood Count 4.25 M/mm3 (4.2-5.4); White Blood Count 6.8 K/mm3 (4.4-11.0)
[2019-10-03 11:18] LABS: Glucose Challenge Gest 1H 50g 53 mg/dL (70-140)
[2019-10-03 11:59] LABS: HIV - WCH Non-Reactive (Nonreactive); Hepatitis B Surface Antigen Non-Reactive (Nonreactive); Hepatitis C Antibody Non-Reactive (Nonreactive); Rubella IgG 219.7 IU/mL
[2019-10-03 16:20] LABS: NATERA MAILED SPECIMEN
[2019-10-06 01:39] LABS: Rapid Plasmin Reagin (RPR) NONREACTIVE (NONREACTIVE)
== END ==
PROVIDERS: Referring Provider Obstetrics & Gynecology; Visit Provider Obstetrics & Gynecology
DX: Z34.90 Encounter for supervision of normal pregnancy, unspecified, unspecified trimester (principal)
CPT/HCPCS: 36415; 80307; 82950; 85025; 86592; 86703; 86762; 86803; 86850; 86900; 86901; 87086; 87088; 87340; 87491; 87591

== ENCOUNTER → 2019-10-03 10:13 | Outpatient (CLI) | payer BC, SELFPAY ==
[2019-09-28 07:00] VITALS: BMI 21.6
== END ==
PROVIDERS: Referring Provider Obstetrics & Gynecology; Visit Provider Obstetrics & Gynecology
DX: Z34.82 Encounter for supervision of other normal pregnancy, second trimester (principal); Z31.430 Encounter of female for testing for genetic disease carrier status for procreative management

== ENCOUNTER 2019-12-10 13:41 | Outpatient (RCR) | payer BC, SELFPAY ==
[2019-11-25 14:50] VITALS: BMI 21.6
== END 2019-12-28 23:59 ==
LOC: EMPH 13:41
PROVIDERS: Referring Provider Family Medicine Geriatric Medicine; Visit Provider Family Medicine Geriatric Medicine
DX: Z11.59 Encounter for screening for other viral diseases (principal)
CPT/HCPCS: 87635; U0003

== ENCOUNTER → 2019-12-16 13:50 | Outpatient (CLI) | payer BC, SELFPAY ==
[2019-11-25 14:50] VITALS: BMI 21.6
--- NOTE | 2019-12-16 13:51 | US_ITS ---
STUDY: SECOND AND THIRD TRIMESTER OBSTETRICAL ULTRASOUND REASON FOR EXAM: Female, 34 years old anatomy LMP: 06/30/2019. TECHNIQUE: Transabdominal TECHNICAL QUALITY: Adequate. PRIOR ULTRASOUND: None. FINDINGS: There is a single intrauterine fetus. The fetus is in a transverse lie with the head on the maternal right side. There is demonstrated cardiac activity with a heart rate of 155 bpm. There is a normal amniotic fluid volume. The largest amniotic fluid pocket measures 7.4 cm x 4.0 cm. The amniotic fluid index (YOSEF) is normal. The placenta is anterior in location and is not low lying. There are Grade 0 placental changes. The cervix measures 3.3 cm in length. The bilateral adnexal regions are normal. BIOMETRY: BPD: 5.7 cm: 23 weeks, 2 days HC: 21.2 cm: 23 weeks, 1 days AC: 20.3 cm: 24 weeks, 6 days FL: 4.05 cm: 23 weeks, 0 days CI: 76% FL/BPD: 71% FL/HC: FL/AC: 20% HC/AC: 1.04 age by current US: 23 weeks, 2 days. VIJAY by current US: 04/11/2020. Estimated weight: 661 grams, +/- 99 grams, 79 %. Age by LMP: 24 weeks, 1 days. VIJAY by LMP: 04/05/2020. ANATOMY: Gender: Female Cranium: Normal lateral ventricles. Normal choroid plexus. Normal cerebellum. Normal cisterna magna. Normal face, nose and lips. Chest: Normal 4-chamber heart. Abdomen/Pelvis: Normal diaphragm. Normal stomach. Normal abdominal wall. Normal cord insertion. Normal 3 vessel cord. Normal kidneys. Normal bladder. Spine: Normal cervical spine. Normal thoracic spine. Limited examination of the lumbar spine and sacral spine. This is due to positioning. Follow-up is recommended. Extremities: Normal bilateral upper extremities. Normal bilateral lower extremities. US/OB Anatomy Scan IMPRESSION: Single live intrauterine gestation with a mean gestational age of 23 weeks and 2 days. Limited views of the lumbar and sacrum. Repeat examination is recommended. Electronically Signed: Rodríguez Bush, at 15:36 EDT , Service support ,
== END ==
PROVIDERS: Referring Provider Obstetrics & Gynecology; Visit Provider Obstetrics & Gynecology
DX: Z3A.23 23 weeks gestation of pregnancy (principal)
CPT/HCPCS: 76805

== ENCOUNTER → 2019-12-30 12:29 | Outpatient (CLI) | payer BC, SELFPAY ==
[2019-11-25 14:50] VITALS: BMI 21.6
--- NOTE | 2019-12-30 12:29 | US_ITS ---
STUDY: SECOND AND THIRD TRIMESTER OBSTETRICAL ULTRASOUND - LIMITED REASON FOR EXAM: Female, 34 years old f/u SPINE VIEWS FROM ANATOMY SCAN LMP: 06/30/2019. PRIOR ULTRASOUND: Comparison is made with prior study dated 12/16/2019. TECHNIQUE: Transabdominal TECHNICAL QUALITY: Adequate. FINDINGS: There is a single intrauterine fetus. The fetus is in a cephalic presentation. There is demonstrated cardiac activity with a heart rate of 145 bpm. There is a normal amniotic fluid volume. The largest amniotic fluid pocket measures 5.1 cm. The amniotic fluid index (YOSEF) is 15.7 cm. The placenta is anterior in location and is not low lying. There are Grade 0 placental changes. The cervix measures 4.1 cm in length. Spinal views of the fetus were performed. The spine is normal. US/OB Limited (No Biometrics) IMPRESSION: Normal examination. Electronically Signed: Rodríguez Bush, at 13:35 EDT , Service support ,
== END ==
PROVIDERS: Referring Provider Obstetrics & Gynecology; Visit Provider Obstetrics & Gynecology
DX: Z34.90 Encounter for supervision of normal pregnancy, unspecified, unspecified trimester (principal)
CPT/HCPCS: 76815

== ENCOUNTER → 2020-01-03 09:59 | Outpatient (CLI) | payer BC, SELFPAY ==
[2019-12-30 13:45] VITALS: BMI 21.6
[2020-01-03 10:16] LABS: Absolute Lymphocyte Count 1.02 X10^3/uL (0.83-4.51); Absolute Neutrophil Count 5.2 X10^3/uL (2.0-7.7); Basophil# 0.02 X10^3/uL; Basophil% 0.3 % (0-1); Eosinophil# 0.08 X10^3/uL; Eosinophils% 1.2 % (0-5); Hematocrit 39.5 % (37-47); Hemoglobin 12.8 g/dL (12.0-15.0); Lymphocyte # 1.02 X10^3/ul (4.0); Lymphocyte % 15.1 % (19-41); Mean Corp Hgb Conc 32.4 g/dL (32-36); Mean Corpuscular Hgb 32.3 pg (27.0-32.0); Mean Corpuscular Volume 99.7 fL (81-99); Mean Platelet Vol. 11.6 fl (6.2-12.0); Monocyte# 0.36 X10^3/uL; Monocyte% 5.3 % (0-10); NRBC Flagged by Analyzer 0 % (0-5); Neutrophil # 5.18 X10^3/uL (2.7-7.7); Neutrophil % 76.9 % (47-70); Platelet Count 151 K/mm3 (150-450); RBC Distribution Width CV 12.7 % (11.6-14.6); RBC Distribution Width SD 47.1 fl (35.1-43.9); Red Blood Count 3.96 M/mm3 (4.2-5.4); White Blood Count 6.7 K/mm3 (4.4-11.0)
[2020-01-03 10:31] LABS: Glucose Challenge Gest 1H 50g 93 mg/dL (70-140)
== END ==
PROVIDERS: Referring Provider Obstetrics & Gynecology; Visit Provider Obstetrics & Gynecology
DX: Z34.90 Encounter for supervision of normal pregnancy, unspecified, unspecified trimester (principal)
CPT/HCPCS: 36415; 82950; 85025

== ENCOUNTER → 2020-02-13 09:44 | Outpatient (CLI) | payer BC, SELFPAY ==
[2020-02-13 09:01] VITALS: BMI 25.3
[2020-02-13 10:08] LABS: ROM Internal Control Test YES-OK TO RESULT pt. (Internal QC); ROM Patient Test Negative (Negative)
== END ==
PROVIDERS: Visit Provider Nurse Practitioner Women's Health
DX: O26.899 Other specified pregnancy related conditions, unspecified trimester (principal); N89.8 Other specified noninflammatory disorders of vagina; Z3A.00 Weeks of gestation of pregnancy not specified
CPT/HCPCS: 84112

== ENCOUNTER → 2020-02-16 14:33 | Outpatient (CLI) | payer BC, SELFPAY ==
[2020-02-13 09:01] VITALS: BMI 25.3
--- NOTE | 2020-02-16 14:36 | US_ITS ---
STUDY: SECOND AND THIRD TRIMESTER OBSTETRICAL ULTRASOUND REASON FOR EXAM: Female, 34 years old growth- smaller than dates LMP: 06/30/2019 TECHNIQUE: Transabdominal TECHNICAL QUALITY: Adequate. PRIOR ULTRASOUND: 12/30/2019 FINDINGS: There is a single intrauterine fetus. The fetus is in a cephalic presentation. There is demonstrated cardiac activity with a heart rate of 152 bpm. There is a normal amniotic fluid volume. The largest amniotic fluid pocket measures 5. cm. The amniotic fluid index (YOSEF) is 15.5 cm. The placenta is anterior in location and is not low lying. There are Grade 1 placental changes. The cervix measures 4.0 cm in length. The adnexal regions are not visualized. BIOMETRY: BPD: 8.1 cm: 32 weeks, 3 days HC: 29.3 cm: 32 weeks, 2 days AC: 29.57: 33 weeks, 3 days FL: 6.2 cm: 32 weeks, 2 days CI: 79.20 FL/BPD: 77.23 FL/HC: 21.30 FL/AC: 21.17 HC/AC: 0.99 age by current US: 32 weeks, 2 days. VIJAY by current US: 04/10/2020. Estimated weight: 2083 grams, +/- 308 grams, 35 %. Age by LMP: 33 weeks, 0 days. VIJAY by LMP: 04/05/2020. ANATOMY: Gender: Cranium: Normal lateral ventricles. Normal choroid plexus. Normal cerebellum. Normal cisterna magna. Normal face, nose and lips. Chest: Normal 4-chamber heart. Abdomen/Pelvis: Normal diaphragm. Normal stomach. Normal abdominal wall. Normal cord insertion. Normal 3 vessel cord. Nuchal umbilical cord. Normal kidneys. Normal bladder. Spine: Normal cervical spine. Normal thoracic spine. Normal lumbar spine. Normal sacrum. Extremities: Normal bilateral upper extremities. Normal bilateral lower extremities. US/OB Limited With Biometrics IMPRESSION: Living intrauterine of 32 weeks 2 days as described above. Nuchal umbilical cord Electronically Signed: Miki Servin MD at 16:24 EST Tel , Service support ,
== END ==
PROVIDERS: Referring Provider Nurse Practitioner Women's Health; Visit Provider Nurse Practitioner Women's Health
DX: O26.849 Uterine size-date discrepancy, unspecified trimester (principal); Z3A.00 Weeks of gestation of pregnancy not specified
CPT/HCPCS: 76816

== ENCOUNTER → 2020-03-01 18:31 | Outpatient (CLI) | payer BC, SELFPAY ==
[2020-02-13 09:01] VITALS: BMI 25.3
== END ==
PROVIDERS: Referring Provider Obstetrics & Gynecology; Visit Provider Obstetrics & Gynecology
DX: Z20.828 Contact with and (suspected) exposure to other viral communicable diseases (principal)
CPT/HCPCS: 87635; C9803; U0003

== ENCOUNTER → 2020-03-09 17:50 | Outpatient (CLI) | payer BC, SELFPAY ==
[2020-03-09 15:20] VITALS: BMI 25.8
== END ==
PROVIDERS: Visit Provider Obstetrics & Gynecology
DX: Z34.90 Encounter for supervision of normal pregnancy, unspecified, unspecified trimester (principal)
CPT/HCPCS: 87081

== ENCOUNTER → 2020-03-14 14:24 | Outpatient (CLI) | payer BC, SELFPAY ==
[2020-03-09 15:20] VITALS: BMI 25.8
--- NOTE | 2020-03-14 14:27 | US_ITS ---
STUDY: SECOND AND THIRD TRIMESTER OBSTETRICAL ULTRASOUND - LIMITED REASON FOR EXAM: Female, 34 years old. growth LMP: 06/29/19 PRIOR ULTRASOUND: 02/16/20 TECHNIQUE: Transabdominal ultrasound evaluation was performed. FINDINGS: There is a single intrauterine fetus. The fetus is in a cephalic presentation. There is demonstrated cardiac activity with a heart rate of 135 bpm. There is a normal amniotic fluid volume. The largest amniotic fluid pocket measures 4.5 cm. The amniotic fluid index (YOSEF) is 9.6 cm. The placenta is anterior in location and is not low lying. There are Grade 1 placental changes. The cervix measures 4.2 cm and is closed. BIOMETRY: BPD: 8.6 cm: 34 weeks, 4 days HC: 31.4 cm: 35 weeks, 1 days AC: 32.8 cm: 36 weeks, 4 days FL: 6.8 cm: 34 weeks, 6 days Age by LMP: 36 weeks, 6 days. VIJAY by LMP: 04/05/20. age by prior US: 36 weeks, 1 days. VIJAY by prior US: 04/10/20. age by current US: 35 weeks, 1 days. VIJAY by current US: 04/17/20. Estimated weight: 2787 grams, +/- 413 grams, 27 percentile. US/OB Limited With Biometrics IMPRESSION: Single live intrauterine gestation at approximately 35 weeks and 1 day based on the current ultrasound. Electronically Signed: Leonard Sahu, at 16:04 EST Tel , Service support ,
== END ==
PROVIDERS: Referring Provider Obstetrics & Gynecology; Visit Provider Obstetrics & Gynecology
DX: Z34.90 Encounter for supervision of normal pregnancy, unspecified, unspecified trimester (principal); U07.1 COVID-19
CPT/HCPCS: 76816

== ENCOUNTER 2020-04-11 07:18 | Inpatient (IN) | payer BC, SELFPAY ==
[2020-04-09 14:58] VITALS: BMI 26.4
[2020-04-11] VITALS (60 sets, daily range): BP systolic 92–131; BP diastolic 41–83; PULSE 67–123; RESP 16; TEMP 36–36.7; O2SAT 82–100; BMI 26.4
[2020-04-11] MEDS: Lactated Ringers 1,000 ML 50 ML IV (07:30)
[2020-04-11] MEDS: Lactated Ringers 500 ML 999 ML IV ×2 (07:55→09:45)
[2020-04-11 07:59] LABS: Absolute Lymphocyte Count 1.24 X10^3/uL (0.83-4.51); Absolute Neutrophil Count 6.6 X10^3/uL (2.0-7.7); Basophil# 0.05 X10^3/uL; Basophil% 0.5 % (0-1); Eosinophil# 0.47 X10^3/uL; Eosinophils% 5.1 % (0-5); Hematocrit 38.3 % (37-47); Hemoglobin 12.9 g/dL (12.0-15.0); Lymphocyte # 1.24 X10^3/ul (4.0); Lymphocyte % 13.5 % (19-41); Mean Corp Hgb Conc 33.7 g/dL (32-36); Mean Platelet Vol. 11.2 fl (6.2-12.0); Monocyte# 0.56 X10^3/uL; Monocyte% 6.1 % (0-10); NRBC Flagged by Analyzer 0 % (0-5); Neutrophil # 6.63 X10^3/uL (2.7-7.7); Neutrophil % 72.1 % (47-70); Platelet Count 198 K/mm3 (150-450); RBC Distribution Width CV 13.8 % (11.6-14.6); RBC Distribution Width SD 48.5 fl (35.1-43.9); Red Blood Count 4.03 M/mm3 (4.2-5.4); White Blood Count 9.2 K/mm3 (4.4-11.0)
--- NOTE | 2020-04-11 09:47 | EKG12_ITS ---
Test Reason : CP Blood Pressure : / mmHG Vent. Rate : 106 BPM Atrial Rate : 106 BPM P-R Int : 124 ms QRS Dur : 084 ms QT Int : 358 ms P-R-T Axes : 049 054 004 degrees QTc Int : 475 ms Sinus tachycardia Otherwise normal ECG No previous ECGs available Confirmed by WAYLON HER, LING ([id number]), digital editor DAFNE JARQUIN ([id number]) on 04/16/2020 11:18:47 AM Referred By: Roberta Hannon Confirmed By:NORA CONNORS MD
[2020-04-11] MEDS: Acetaminophen 500 MG Tablet PO (09:59)
[2020-04-11] MEDS: Sodium Citrate/Citric Acid 30 ML UDC PO (10:07)
--- NOTE | 2020-04-11 10:54 | PCM.HPOB.BLA ---
- Problem List (1) Active labor at term Status: Acute (2) gbs negative Status: Acute (3) COVID-19 affecting , antepartum Status: Acute Comment: start baby ASA; growth scan ordered (4) History of gestational diabetes Status: Acute Comment: 1 tm glucola- normal (5) History of precipitous delivery Status: Acute Comment: h/o negative experience with previous delivery, missed delivery. reassurance provided, plan mutual communication and agreement upon labor symptoms at any labor evaluations. (6) Status: Acute Qualifiers: Comment: declines NIPT, carrier negative Shsjn-Rjlws-Xljge Syndrome recommend FOB to be tested, afp screening-pt declined (7) Supervision of normal Status: Acute Qualifiers: Comment: PRR VIJAY 04/05/20 PC Jaime Granados [place] Kris History and Physical Date of Admission: 04/11/20 Intake Vital Signs 04/09/20 Height 5 ft 6 in 04/09/20 Weight: 164 lb 04/09/20 BP 130/80 H Intake Visit Reasons: 40 WK OB Chief Complaint: est ob Medical Doctor Md/Medical Director Required: No Is patient in pain?: No Allergies No Known Allergies Allergy (Verified 04/09/20 14:58) Medications Vits [Prenatabs FA ] 1 tab PO DAILY 08/30/14 [History Confirmed 04/09/20] aspirin 81 mg tablet,delayed release 81 mg PO DAILY 03/09/20 [History Confirmed 04/09/20] famotidine 20 mg tablet 20 mg PO BID #60 tab 03/09/20 [Rx Confirmed 04/09/20] Last Menstral Period: 06/30/19 Zika: Zika virus screening: Negative : No PFSH PFSH Surgical History H/O knee surgery (Acute) History of wisdom tooth extraction, class II edentulism (Acute) Family History Father Prostate cancer Social History (Updated 04/09/20 @ 15:45 by Marisela Birmingham NP, EXPEDITIONARY [employer]HTING [employer]) Smoking Status: Never smoker alcohol intake: never substance use type: does not use caffeine: Yes what type of physical activity do you participate in: walking frequency: 3-4 times per week seatbelt use: always do you feel safe at home: Yes additional social history: 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 Date Name GA/Weeks Outcome Route Bth Weight Infant Gen Labor Lgth Anesthesia Del Locatn Provider FOB 08/31/14 [place] 39 live - full term 7lbs 8oz Male 4 hours epidural [facility] Dr. Rai Ponce 12/18/16 [place] 39 live - full term 8lbs 2oz Female 40 minutes none [facility] Dr. Rai Ponce 07/06/18 [place] 40 live - full term 7lbs 11oz Female 5 hours epidural [facility] Dr. Atwood (nurse delivered) Kris Delivery Date: 08/31/14 Gestational diabetes Karlie,Daniela Delivery Date: 12/18/16 No issues during or delivery Karlie,Daniela Delivery Date: 07/06/18 No issues during or delivery Karlie,Daniela HPI 40 WK OB: Details: REYNALDO SMITH is a 34 year old @ 40w6d presents IAL 4 cm dilated with regular ctx. she denies any lof admits good fm. OB Visit VIJAY Calculator Estimated Delivery Date Method Current WG Current Estimate 04/05/20 LMP (Uncertain) 40w 4d Other Estimates 04/07/20 Ultrasound #1 40w 2d Expected Delivery Route/Plan iol 41 Labor Preferences- labor support person: Kris pain management options preferred: rapid deliveries but open to it cut cord/dad catch: yes : yes PP control planned: [] discussed possible routes of delivery and associated risks: discussed possible delivery modalities and possible indications for each including R/B/A of , VAVD, FAVD, and CS. questions answered. special requests: none Specific Issue/Plans flu vaccine: yes tdap vaccine: yes rhogam: na LARC form signed: yes movement and labor precautions reviewed. Problem list reviewed and updated with the most current plan of care details and appropriate orders placed. Relevant counseling for the gestational age provided. Continue routine care and follow up unless otherwise noted in visit notes/problem list details Initial Weight: 134 lb Date EGA Weight BP Urine Prot Glucose FHR FuHt Pres Dilation Effaced St Visit Note 09/26/19 12w 4d 134 lb (+0 oz) 118/72 118/72 160 CRL consistent with LMP 10/28/19 17w 1d 141 lb 8 oz (+7 lb 8 oz) 118/64 Negative Negative 150 j SM- no vb lof cramping 11/25/19 21w 1d 146 lb (+12 lb) Negative Negative 150 GP - no cramping, LOF, VB. Occasional FM. Thought anatomy was supposed to be in office - will call to schedule. 12/30/19 26w 1d 148 lb 8 oz (+14 lb 8 oz) 116/74 Negative Negative 140 26 GP - no cramping LOF, VB, DFM. Anatomy normal. Glucola next visit 02/13/20 32w 4d 157 lb 2 oz (+23 lb 2 oz) 120/80 Negative Negative 148 31 30 MH-Thought had irreg CTX and leaking fluid 2 days ago. NO VB. None since. Good FM. MH-Thought had irreg CTX and leaking fluid 2 days ago. NO VB. None since. Good FM. ROM pending. MH-Thought had irreg CTX and leaking fluid 2 days ago. NO VB. None since. Good FM. ROM pending. Growth US this week 03/09/20 36w 1d 160 lb 4 oz (+26 lb 4 oz) 118/70 Negative Negative 135 36 Cephalic 1 40 -3 GP - no LOF, VB, DFM, ctx. GBS today. Discussed routes of delivery. Discussed management after COVID. 03/15/20 37w 0d 161 lb (+27 lb) 122/80 Negative Negative 135 36 Cephalic 1 40 -2 Sm-no vb lof good fm no regular ctx 03/22/20 38w 0d 163 lb (+29 lb) 110/70 Negative Negative 135 37 Cephalic 1 SM- no vb lof good fm no regular ctx 03/29/20 39w 0d 165 lb 8 oz (+31 lb 8 oz) 120/80 Negative Negative 140 38 Cephalic 2 50 -2 GP - no LOF, VB, DFM, regular ctx. 04/05/20 40w 0d 164 lb (+30 lb) 124/80 Negative Negative 140 37 Cephalic 2 50 -2 SM- no vb lof good fm no regular ctx SM- no vb lof good fm no regular ctx bedside amalia WNL discussed IOL by 41 04/09/20 40w 4d 164 lb (+30 lb) 130/80 Negative Negative 144 39 Cephalic 2 50 -2 MH-No VB, LOF. NO reg CTX. Good FM. ACOG First Trimester First Trimester: Discussed Diagnostics Diagnostics Diagnostics Glucose 1 Hr 50 gm 93 mg/dL (70-140) 01/03/20 Hgb 12.8 g/dL (12.0-15.0) 01/03/20 Hct 39.5 % (37-47) 01/03/20 Details: HIV: Urine Culture: Sequential Screen: NIPT Screen: ROS Const Reports system reviewed and no additional complaints, except as docu Card Reports system reviewed and no additional complaints, except as docu Resp Reports system reviewed and no additional complaints, except as docu GI Reports system reviewed and no additional complaints, except as docu, Reports nausea Reports system reviewed and no additional complaints, except as docu Musc Reports system reviewed and no additional complaints, except as docu Exam Const General: cooperative, healthy appearing, comfortable, anxious [facility] [place] Head: normal to inspection Nose: external nose normal Face and sinus: normal facial exam Neck Neck: normal visual inspection, full ROM, no lymphadenopathy Thyroid: thyroid normal Chest Chest palpation & inspection: normal inspection of the chest Resp Effort & Inspection: normal respiratory effort GI Inspection: normal to inspection Palpation: soft, other (gravid uterus) Other: vertex and appropriate size for gestational age Other: Cervical Exam: 4 Extrem General: pedal edema Results POC Urinalysis 2 Dip (Clinic) Office Urine Glucose Negative Last Edit by Edna Phillips on 04/09/20 15:06 Office Urine Protein Negative Last Edit by Edna Phillips on 04/09/20 15:06 Assessment & Plan Problems 1. Supervision of normal Z34.90 PRR VIJAY 04/05/20 Jaime Watters [place] Kris 2. Z34.90 considering NIPT, carrier negative Fcimr-Kmwkg-Gjpuw Syndrome recommend FOB to be tested, afp screening-pt declined 3. History of precipitous delivery Z87.59 h/o negative experience with previous delivery, missed delivery. reassurance provided, plan mutual communication and agreement upon labor symptoms at any labor evaluations. discussed possible 39 week IOL 4. History of gestational diabetes Z86.32 1 tm glucola- normal 5. COVID-19 affecting , antepartum O98.519; U07.1 start baby ASA; growth scan ordered 6. gbs negative Patient presents IAL, plan expectant management for , pitocin/AROM PRN if needed. Pain management: plans epidural. GBS negative. Management of any complications: none I have reviewed the [facility] and made any clinically relevant updates. Orders Orders: POC Urinalysis 2 Dip (Clinic) Today Coding Diagnoses Supervision of normal Z34.90 Z34.90 History of precipitous delivery Z87.59 History of gestational diabetes Z86.32 COVID-19 affecting , antepartum O98.519; U07.1 gbs negative
[2020-04-11] MEDS: Oxytocin 30 units/NS 500 ml 30 UNITS/500 ML IV.SOLN IV (12:05)
[2020-04-11] MEDS: Oxytocin 30 units/NS 500 ml 30 UNITS/500 ML IV.SOLN 334 UNITS IV (13:06)
--- NOTE | 2020-04-11 13:16 | PCM.OPRPT ---
Problem List (1) Active labor at term Status: Acute (2) gbs negative Status: Acute (3) COVID-19 affecting , antepartum Status: Acute Comment: start baby ASA; growth scan ordered (4) History of gestational diabetes Status: Acute Comment: 1 tm glucola- normal (5) History of precipitous delivery Status: Acute Comment: h/o negative experience with previous delivery, dr missed delivery. reassurance provided, plan mutual communication and agreement upon labor symptoms at any labor evaluations. (6) Status: Acute Qualifiers: Comment: declines NIPT, carrier negative Bekfz-Bxurp-Qenym Syndrome recommend FOB to be tested, afp screening-pt declined (7) Supervision of normal Status: Acute Qualifiers: Comment: PRR VIJAY 04/05/20 PC Jaime Granados [place] Kris Vaginal Delivery Maternal Presentation: Active Labor presents ial 4 cm dilated Method of Induction: Pitocin Amniotic Membrane Rupture Type: Artificial Amniotic Fluid Description: Clear Final VIJAY: 04/05/20 Gestational age: 40 Weeks and 6 Days Date of Procedure: 04/11/20 Pre-Operative Diagnosis: ial Post-Operative Diagnosis: same Surgery/ Procedure Performed: Spontaneous Vaginal Delivery Type of Anesthesia: Epidural Description of Procedure: Patient was 6 cm prior to getting into the shower and then felt pressure and she just made it into her bed and the head crowned and delivered spontaneously with nurse present per nursing rest the delivered without complication but placed on maternal abdomen cord was clamped and cut. Physician then arrived and placenta delivered spontaneously immediately following was noted to be intact with three-vessel cord. No lacerations. Placental Delivery Description: Spontaneous Placenta Disposition: [facility] Cord Vessel Description: 3 Vessels Cord Entanglement: None Estimated Blood Loss: 50 A gender: Female Episiotomy Description: None Laceration: None Medications given after delivery: IV Pitocin Complications: None Multi Select Codes - Urinary/Genital Urinary/Genital CPT Codes: 92626 Vaginal Delivery [facility]
[2020-04-11] MEDS: Ketorolac 30 MG/ML Syringe IV (13:28)
[2020-04-11] MEDS: Acetaminophen 500 MG Tablet 1000 MG PO (17:27)
[2020-04-11] MEDS: Naproxen 250 MG Tablet 500 MG PO (21:24)
[2020-04-11] MEDS: 0.9% Saline Lock 10 ML Syringe IV (22:26)
[2020-04-12 00:05] VITALS: BP 114/65; PULSE 74; RESP 16; TEMP 36.3
[2020-04-12] MEDS: Acetaminophen 500 MG Tablet 1000 MG PO ×3 (01:52→17:52)
[2020-04-12 04:06] VITALS: BP 112/44; PULSE 73; RESP 16; TEMP 36.6
[2020-04-12] MEDS: Naproxen 250 MG Tablet 500 MG PO ×3 (05:30→21:27)
[2020-04-12 08:16] VITALS: BP 114/50; PULSE 74; RESP 16; TEMP 36.4
[2020-04-12] MEDS: Prenatal Vits Tablet 1 TABLET PO (10:17)
--- NOTE | 2020-04-12 12:59 | PCM.PN.OB ---
Patient Problems: Active and Suspected Problems (Last Reviewed 04/09/20 @ 14:58 by Edna Phillips) Active labor at term (Acute) gbs negative (Acute) COVID-19 affecting , antepartum (Acute) start baby ASA; growth scan ordered History of gestational diabetes (Acute) 1 tm glucola- normal History of precipitous delivery (Acute) h/o negative experience with previous delivery, missed delivery. reassurance provided, plan mutual communication and agreement upon labor symptoms at any labor evaluations. (Acute) declines NIPT, carrier negative Ligaj-Xbfpp-Afrst Syndrome recommend FOB to be tested, afp screening-pt declined Supervision of normal (Acute) PRR VIJAY 04/05/20 PC Jaime Granados [place] Kris Subjective: Patient doing well without complaints. Tolerating PO. Ambulating and voiding without difficulty. feeding well. Denies chest pain, shortness of breath, calf pain/swelling, fevers, chills, lightheadedness. - Physical Exam Vitals/I&O's: Vital Signs Temp Pulse Resp BP Pulse Ox 97.5 F L 74 16 114/50 L 95 04/12/20 08:16 04/12/20 08:16 04/12/20 08:16 04/12/20 08:16 04/11/20 12:27 Oxygen Delivery Method Room Air Weight: 163 lb 8 oz Body Mass Index (BMI) 26.4 Intake and Output for Last 24 Hours 04/10/20 04/11/20 04/12/20 23:59 23:59 23:59 Intake Total 2353.60 / 2353.60 Balance 2353.60 / 2353.60 General: Alert, Oriented x3 Current Medications Acetaminophen (Acetaminophen 500 Mg Tablet) 1,000 mg PO Q8H PRN PRN PRN Reason: Pain Score 1-3 Last Admin: 04/12/20 10:17 Dose: 1,000 mg Documented by: Bisacodyl (Bisacodyl 10 Mg Suppository) 10 mg RECTAL UD PRN PRN Reason: If no BM Dibucaine (Dibucaine 30 Gm Tube) 1 applic TOPICAL TID PRN PRN; Protocol PRN Reason: Discomfort Hydrocortisone (Hydrocortisone 2.5% Crm) 1 applic TOPICAL TID PRN PRN; Protocol PRN Reason: Discomfort Ketorolac Tromethamine (Ketorolac 10 Mg Tablet) 10 mg PO Q6H PRN PRN PRN Reason: Pain Score 1-3 Stop: 04/16/20 13:30 Methylergonovine Maleate (Methylergonovine 0.2 Mg/Ml Ampul) 0.2 mg IM X1 PRN PRN Reason: Excess bleeding/uterine atony Naproxen (Naproxen 250 Mg Tablet) 500 mg PO Q8H PRN PRN PRN Reason: Pain Score 1-3 Last Admin: 04/12/20 05:30 Dose: 500 mg Documented by: Ondansetron HCl (Ondansetron 4 Mg/2 Ml Vial) 4 mg IV Q4H PRN PRN PRN Reason: Nausea Oxycodone HCl (Oxycodone 5 Mg Tablet) 5 - 10 mg PO Q4H PRN PRN PRN Reason: Pain Score 4-10 Multivit/Folic Acid/Iron ( Vits Tablet) 1 tablet PO DAILY@1200 SHOSHANA Last Admin: 04/12/20 10:17 Dose: 1 tablet Documented by: Senna/Docusate Sodium (Senna/Docusate Sodium 1 Tablet) 1 - 2 tablet PO DAILY PRN PRN PRN Reason: Constipation Simethicone (Simethicone 80 Mg Tablet) 80 mg PO PCHS PRN PRN Reason: Indigestion/Stomach pain Sodium Chloride (0.9% Saline Lock 10 Ml Syringe) 5 - 15 ml IV UD PRN PRN Reason: SALINE FLUSH Last Admin: 04/11/20 22:26 Dose: 10 ml Documented by: Medical Necessity - Tobacco Use Smoking Status: Never smoker Assessment/Plan All Active Problems (Last Reviewed 04/09/20 @ 14:58 by Edna Phillips) Active labor at term (Acute) gbs negative (Acute) COVID-19 affecting , antepartum (Acute) History of gestational diabetes (Acute) History of precipitous delivery (Acute) (Acute) Supervision of normal (Acute) Active labor at term (Resolved) Breast lump (Resolved) s/p PPD # 1 1. routine post delivery care 2. breast feeding- support given 3. rh positive 4. rubella immune
[2020-04-12 13:30] VITALS: BP 111/71; PULSE 74; RESP 16; TEMP 36.4
--- NOTE | 2020-04-12 16:48 | DCINST_ITS ---
Discharge Diet: No Restrictions Discharge Activity: Return to Normal Activity, May not drive while taking narcotic pain medications., May Shower May resume sexual activity in: 4-6 weeks Call your doctor if your incision/area has: Continuous Slow Oozing, Sudden Increased Bleeding, Increased Pain/ Swelling, Increased Redness, Foul Smelling Discharge Additional Instructions: If you experience any of the following, contact your healthcare provider. * Bleeding that soaks a pad every hour for 2 hours * Fever 100.4 or higher * Unrelieved incision or abdominal pain * Swelling, redness, discharge or bleeding from your incision or episiotomy site * Your incision begins to separate * Problems urinating (including inability to urinate or burning while urinating). * Visual changes * Severe headache * Flu-like symptoms * Pain or redness in one of both of your breasts * Pain, warmth, tenderness or swelling in your legs, especially the calf area * Frequent nausea and vomiting * Symptoms of depression or anxiety If you experience any of the following, call 911 or go to the nearest Emergency Room. * Chest pain * Problems breathing * Seizure activity * Partial or complete paralysis of a body part, slurred speech, weakness or drooping of the face, or a sudden inability to walk or hold your balance Allergies/Adverse Reactions: Allergies No Known Allergies Allergy (Verified 04/09/20 14:58) Medications to take at Discharge Vits [Prenatabs FA ] 1 tab PO DAILY 08/30/14 aspirin 81 mg tablet,delayed release 81 mg PO DAILY 03/09/20 Famotidine 20 mg PO BID 04/11/20 Naproxen [Naprosyn] 250 - 500 mg PO Q8H PRN PRN #30 tab 04/12/20 The following prescriptions were given: Naproxen [Naprosyn] 250 - 500 mg PO Q8H PRN PRN #30 tab PRN Reason: MILD PAIN Transmission Status: Pending to [facility] Please Follow Up With: Roberta Hannon MD - [phone] When: Call to make an appointment with your doctor in 6 weeks. If you had elevated Blood pressure or 4th degree laceration you will need to be seen in 2 weeks. Primary Care Physician: Care Physician,No Primary [Primary Care Provider] - Test Results: Test results from this visit will be discussed in further detail at your follow- up appointment, if applicable.
[2020-04-12 20:47] VITALS: BP 110/74; PULSE 83; RESP 18; TEMP 36.6
[2020-04-12] MEDS: Senna/Docusate Sodium 1 Tablet PO (21:27)
[2020-04-13] MEDS: Acetaminophen 500 MG Tablet 1000 MG PO (02:16)
[2020-04-13 02:19] VITALS: BP 120/65; PULSE 84; RESP 18; TEMP 36.2
--- NOTE | 2020-04-13 03:30 | PCM.PN.OB ---
Patient Problems: Active and Suspected Problems (Last Reviewed 04/09/20 @ 14:58 by Edna Phillips) Active labor at term (Acute) gbs negative (Acute) COVID-19 affecting , antepartum (Acute) start baby ASA; growth scan ordered History of gestational diabetes (Acute) 1 tm glucola- normal History of precipitous delivery (Acute) h/o negative experience with previous delivery, missed delivery. reassurance provided, plan mutual communication and agreement upon labor symptoms at any labor evaluations. 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 Tolerating PO. Ambulating and voiding without difficulty. feeding well. Denies chest pain, shortness of breath, calf pain/swelling, fevers, chills, lightheadedness. - Physical Exam Vitals/I&O's: Vital Signs Temp Pulse Resp BP Pulse Ox 97.2 F L 84 18 120/65 95 04/13/20 02:19 04/13/20 02:19 04/13/20 02:19 04/13/20 02:19 04/11/20 12:27 Oxygen Delivery Method Room Air Weight: 163 lb 8 oz Body Mass Index (BMI) 26.4 Intake and Output for Last 24 Hours 04/11/20 04/12/20 04/13/20 23:59 23:59 23:59 Intake Total 2353.60 / 2353.60 Balance 2353.60 / 2353.60 General: Alert, Oriented x3 Current Medications Acetaminophen (Acetaminophen 500 Mg Tablet) 1,000 mg PO Q8H PRN PRN PRN Reason: Pain Score 1-3 Last Admin: 04/13/20 02:16 Dose: 1,000 mg Documented by: Bisacodyl (Bisacodyl 10 Mg Suppository) 10 mg RECTAL UD PRN PRN Reason: If no BM Dibucaine (Dibucaine 30 Gm Tube) 1 applic TOPICAL TID PRN PRN; Protocol PRN Reason: Discomfort Hydrocortisone (Hydrocortisone 2.5% Crm) 1 applic TOPICAL TID PRN PRN; Protocol PRN Reason: Discomfort Ketorolac Tromethamine (Ketorolac 10 Mg Tablet) 10 mg PO Q6H PRN PRN PRN Reason: Pain Score 1-3 Stop: 04/16/20 13:30 Methylergonovine Maleate (Methylergonovine 0.2 Mg/Ml Ampul) 0.2 mg IM X1 PRN PRN Reason: Excess bleeding/uterine atony Naproxen (Naproxen 250 Mg Tablet) 500 mg PO Q8H PRN PRN PRN Reason: Pain Score 1-3 Last Admin: 04/12/20 21:27 Dose: 500 mg Documented by: Ondansetron HCl (Ondansetron 4 Mg/2 Ml Vial) 4 mg IV Q4H PRN PRN PRN Reason: Nausea Oxycodone HCl (Oxycodone 5 Mg Tablet) 5 - 10 mg PO Q4H PRN PRN PRN Reason: Pain Score 4-10 Multivit/Folic Acid/Iron ( Vits Tablet) 1 tablet PO DAILY@1200 SHOSHANA Last Admin: 04/12/20 10:17 Dose: 1 tablet Documented by: Senna/Docusate Sodium (Senna/Docusate Sodium 1 Tablet) 1 - 2 tablet PO DAILY PRN PRN PRN Reason: Constipation Last Admin: 04/12/20 21:27 Dose: 2 tablet Documented by: Simethicone (Simethicone 80 Mg Tablet) 80 mg PO PCHS PRN PRN Reason: Indigestion/Stomach pain Sodium Chloride (0.9% Saline Lock 10 Ml Syringe) 5 - 15 ml IV UD PRN PRN Reason: SALINE FLUSH Last Admin: 04/11/20 22:26 Dose: 10 ml Documented by: Medical Necessity - Tobacco Use Smoking Status: Never smoker Assessment/Plan All Active Problems (Last Reviewed 04/09/20 @ 14:58 by Edna Phillips) Active labor at term (Acute) gbs negative (Acute) COVID-19 affecting , antepartum (Acute) History of gestational diabetes (Acute) History of precipitous delivery (Acute) (Acute) Supervision of normal (Acute) Active labor at term (Resolved) Breast lump (Resolved) s/p PPD # 2 1. routine post delivery care 2. breast feeding- support given 3. rh positive 4. rubella immune
[2020-04-13] MEDS: Naproxen 250 MG Tablet 500 MG PO (09:36)
[2020-04-13 10:58] VITALS: BP 114/60; PULSE 80; RESP 18; TEMP 36.3
== END 2020-04-13 12:30 | disposition home or self-care (01) | DRG 807 ==
LOC: WPOUT 07:23 → WP 07:23
PROVIDERS: Admitting Provider Obstetrics & Gynecology; Referring Provider Obstetrics & Gynecology; Visit Provider Obstetrics & Gynecology
DX: O62.3 Precipitate labor (principal); Z37.0 Single live birth; Z86.16 Personal history of COVID-19; Z86.39 Personal history of other endocrine, nutritional and metabolic disease; Z87.59 Personal history of other complications of pregnancy, childbirth and the puerperium; Z3A.40 40 weeks gestation of pregnancy
CPT/HCPCS: 59050; 85025; 86850; 86900; 86901; 93005; 99218; J7120; A4216; G0378

== ENCOUNTER 2020-07-13 09:23 | Outpatient (RCR) | payer BC, SELFPAY ==
[2019-11-25 14:50] VITALS: BMI 21.6
[2020-05-25 13:24] VITALS: BMI 24.3
== END 2020-07-27 23:59 ==
LOC: EMPH 09:23
PROVIDERS: Referring Provider Family Medicine Geriatric Medicine; Visit Provider Family Medicine Geriatric Medicine
DX: Z03.818 Encounter for observation for suspected exposure to other biological agents ruled out (principal)
CPT/HCPCS: 87426

== ENCOUNTER 2020-12-20 09:29 | Outpatient (RCR) | payer BC, SELFPAY ==
[2020-05-25 13:24] VITALS: BMI 24.3
== END 2020-12-27 23:59 ==
LOC: EMPH 09:29
PROVIDERS: Referring Provider Family Medicine Geriatric Medicine; Visit Provider Family Medicine Geriatric Medicine
DX: Z03.818 Encounter for observation for suspected exposure to other biological agents ruled out (principal)
CPT/HCPCS: 87426

== ENCOUNTER 2021-02-14 12:53 | Outpatient (RCR) | payer BC, SELFPAY ==
[2020-12-28 00:05] VITALS: BMI 24.3
== END 2021-02-26 23:59 ==
LOC: EMPH 12:53
PROVIDERS: Referring Provider Family Medicine Geriatric Medicine; Visit Provider Family Medicine Geriatric Medicine
DX: Z03.818 Encounter for observation for suspected exposure to other biological agents ruled out (principal)
CPT/HCPCS: 87426

== ENCOUNTER 2021-03-28 10:58 | Outpatient (RCR) | payer MEDICARE, SELFPAY ==
[2021-02-27 00:05] VITALS: BMI 24.3
== END 2021-03-29 23:59 ==
LOC: EMPH 10:58
PROVIDERS: Referring Provider Family Medicine Geriatric Medicine; Visit Provider Family Medicine Geriatric Medicine
DX: Z03.818 Encounter for observation for suspected exposure to other biological agents ruled out (principal)
CPT/HCPCS: 87635; U0003; U0005

== ENCOUNTER 2021-04-04 12:47 | Outpatient (RCR) | payer OTHER, SELFPAY ==
[2021-03-30 00:09] VITALS: BMI 24.3
== END 2021-04-29 23:59 ==
LOC: EMPH 12:47
PROVIDERS: Referring Provider Family Medicine Geriatric Medicine; Visit Provider Family Medicine Geriatric Medicine
DX: Z03.818 Encounter for observation for suspected exposure to other biological agents ruled out (principal)
CPT/HCPCS: 87426

== ENCOUNTER 2021-05-09 09:30 | Outpatient (RCR) | payer OTHER, SELFPAY ==
[2021-04-30 00:16] VITALS: BMI 24.3
== END 2021-05-27 23:59 ==
LOC: EMPH 09:30
PROVIDERS: Referring Provider Family Medicine Geriatric Medicine; Visit Provider Family Medicine Geriatric Medicine
DX: Z03.818 Encounter for observation for suspected exposure to other biological agents ruled out (principal)
CPT/HCPCS: 87426

== ENCOUNTER 2021-08-22 16:39 | Outpatient (RCR) | payer OTHER, SELFPAY ==
[2021-05-28 00:20] VITALS: BMI 24.3
== END 2021-08-27 23:59 ==
LOC: EMPH 16:39
PROVIDERS: Referring Provider Family Medicine Geriatric Medicine; Visit Provider Family Medicine Geriatric Medicine
DX: Z03.818 Encounter for observation for suspected exposure to other biological agents ruled out (principal)
CPT/HCPCS: 87811

== ENCOUNTER 2021-09-13 08:19 | Outpatient (RCR) | payer OTHER, SELFPAY ==
[2021-08-28 00:07] VITALS: BMI 24.3
== END 2021-09-26 23:59 ==
LOC: EMPH 08:19
PROVIDERS: Referring Provider Family Medicine Geriatric Medicine; Visit Provider Family Medicine Geriatric Medicine
DX: Z03.818 Encounter for observation for suspected exposure to other biological agents ruled out (principal)
CPT/HCPCS: 87811

== ENCOUNTER → 2024-01-26 | Outpatient (CLI) | payer BC, SELFPAY ==
[2024-02-02 00:07] LABS: HPV APTIMA, High Risk Negative (Negative)
== END | disposition home or self-care (01) ==
LOC: LABSPEC 10:50
PROVIDERS: Referring Provider Obstetrics & Gynecology; Visit Provider Obstetrics & Gynecology
DX: Z12.4 Encounter for screening for malignant neoplasm of cervix (principal)
CPT/HCPCS: 87624; 88175; G0145